=== PATIENT | male | born 1925 | race Caucasian/White ===

== ENCOUNTER 2017-02-04 14:51 | Emergency (ER) | payer MEDICARE, BC ==
[2017-02-04 15:06] VITALS: BP 134/56
--- NOTE | 2017-02-04 15:34 | EDM.PDOC ---
ED HPI GENERAL MEDICAL PROBLEM - General Chief Complaint: Lower Extremity Injury/Pain Stated Complaint: HURT LT KNEE Time Seen by Provider: 02/04/17 15:29 Source of Information: Reports: Patient, Family History Limitations: Reports: No Limitations - History of Present Illness INITIAL COMMENTS - FREE TEXT/NARRATIVE: pt tripped n a cememt area. She landed against the left rib cage and left knee. He is rating his pain about a 7. He is on coumadin so he has had alot of bleeding in the left knee. Onset: Other (pt fell last nite landed on his left knee. ) Duration: Hour(s): Location: Reports: Chest, Lower Extremity, Left Associated Symptoms: Reports: Chest Pain, Other (pt is not having alot of trouble breathing. ) left;knee Pain Score (Numeric/FACES): 5 - Related Data Allergies Allergy/AdvReac Type Severity Reaction Status Date / Time codeine AdvReac Nausea and Verified 02/04/17 15:08 Vomiting Home Meds: Home Meds Furosemide 10 mg PO DAILY 02/04/17 [History] Levothyroxine 125 mg PO DAILY 02/04/17 [History] Metoprolol Tartrate 75 mg PO DAILY 02/04/17 [History] Simvastatin [Zocor] 80 mg PO BEDTIME 02/04/17 [History] Warfarin Sodium [Coumadin] 7.5 mg PO ASDIRECTED 02/04/17 [History] Warfarin [Coumadin] 5 mg PO ASDIRECTED 02/04/17 [History] Past Medical History HEENT History: Reports: Impaired Vision Cardiovascular History: Reports: Heart Murmur Dermatologic History: Reports: Eczema - Past Surgical History GI Surgical History: Reports: Cholecystectomy Musculoskeletal Surgical History: Reports: Knee Replacement Social & Family History - Tobacco Use Smoking Status *Q: Never Smoker - Alcohol Use Days Per Week of Alcohol Use: 1 Number of Drinks Per Day: 7 Total Drinks Per Week: 7 - Recreational Drug Use Recreational Drug Use: No Review of Systems - Review of Systems Review Of Systems: See Below Constitutional: Reports: No Symptoms Eyes: Reports: No Symptoms Ears: Reports: No Symptoms Nose: Reports: No Symptoms Mouth/Throat: Reports: No Symptoms Respiratory: Reports: Other (pain in the left rib cage. ) Cardiovascular: Reports: No Symptoms GI/Abdominal: Reports: No Symptoms Musculoskeletal: Reports: Other (left knee is bruised and quite swollen. ) ED EXAM, GENERAL - Physical Exam Exam: See Below Free Text/Narrative:: pt fell last nite and hit his left rib cage. He is tender over the 8th and 9th rib. He has a markedly swollen left knee which is very bruised. He is on coumadin. He has been walking on the leg some since the fall Exam Limited By: No Limitations General Appearance: Alert, Mild Distress Ears: Normal TMs Nose: Normal Inspection Throat/Mouth: Normal Inspection Head: Atraumatic Neck: Normal Inspection Respiratory/Chest: No Respiratory Distress Cardiovascular: Regular Rate, Rhythm GI/Abdominal: Soft, Non-Tender (Male) Exam: Deferred Rectal (Males) Exam: Deferred Back Exam: Normal Inspection Extremities: Other (left knee area is very swollen. He has alot of hematoma around the knee he is tender on the lateral aspect of the knee. The lower leg is swollen. The calf is not tender, ) Neurological: Alert, Oriented, Normal Cognition Psychiatric: Normal Affect Course - Vital Signs Last Recorded V/S: Last Vital Signs Temp 37.4 C 02/04/17 15:05 Pulse 70 02/04/17 15:05 Resp 14 02/04/17 15:05 BP 134/56 L 02/04/17 15:05 Pulse Ox 95 02/04/17 15:05 - Orders/Labs/Meds Labs: Laboratory Tests 02/04/17 02/04/17 02/04/17 Range/Units 15:35 15:35 15:35 WBC 7.6 (4.5-11.0) K/uL RBC 3.05 L (4.30-5.90) M/uL Hgb 10.2 L (12.0-15.0) g/dL Hct 30.5 L (40.0-54.0) % MCV 100 H (80-98) fL MCH 33 H (27-31) pg MCHC 33 (32-36) % Plt Count 231 (150-400) K/uL Neut % (Auto) 60 (36-66) % Lymph % (Auto) 19 L (24-44) % Luna % (Auto) 18 H (2-6) % Eos % (Auto) 2 (2-4) % Baso % (Auto) 1 (0-1) % PT 29.4 H (9.5-12.0) sec INR 2.64 H (0.80-1.20) Sodium 138 L (140-148) mmol/L Potassium 4.6 (3.6-5.2) mmol/L Chloride 105 (100-108) mmol/L Carbon Dioxide 29 (21-32) mmol/L Anion Gap 8.6 (5.0-14.0) mmol/L BUN 22 H (7-18) mg/dL Creatinine 1.0 (0.8-1.3) mg/dL Est Cr Clr Drug Dosing 51.71 mL/min Estimated GFR (MDRD) > 60 (>60) Glucose 100 (74-106) mg/dL Calcium 8.4 L (8.5-10.1) mg/dL Meds: Medications Discontinued Medications Generic Name Dose Route Start Last Admin Trade Name Freq PRN Reason Stop Dose Admin Diphtheria/Tetanus/Acell Pertussis 0.5 ml 02/04/17 15:37 02/04/17 15:54 Adacel IM 02/04/17 15:38 0.5 ml .ONCE ONE Administration - Re-Assessments/Exams Free Text/Narrative Re-Assessment/Exam: 02/04/17 16:18 xray of the knee revealed no fracture present. rib detail and chest xray reveals a fracture of the 9th rib. His lab work looks good. His inr is 2.69. Will hold the coumadin tomorrow. Departure - Departure Time of Disposition: 16:05 Disposition: Home, Self-Care 01 Condition: Fair Clinical Impression: Fractured rib, Contusion of left knee, Abrasion of left knee, Abrasion of elbow , Traumatic hematoma of left knee - Discharge Information Instructions: Contusion, [id number], Abrasion, [id number], Rib Fracture, [id number], VIS, Tetanus, Diphtheria, and Pertussis (Tdap) - CDC Referrals: PCP,None [Primary Care Provider] - Forms: ED Department Discharge Care Plan Goals: norco 1/2 tab q6h prn for pain keflex 500mg tid, hold coumadin tomorrow then resume usual schedule. cool pack knee for next 48 hours then use moist warm heat to area. minimal wt bearing, elevate leg when sitting, encourage deep breathing. rtc if problems.
[2017-02-04] MEDS ORDERED: Diphtheria,Pertussis(Acell),Tetanus Vaccine 0.5 ML SDV IM ONE (15:37)
--- NOTE | 2017-02-05 09:07 | CR ---
Ribs 2V w Chest Lt HISTORY: Fall. COMPARISON: None FINDINGS: Chest demonstrates elevation right hemidiaphragm. The cardiac size and pulmonary vessels ar e normal. No focal infiltrates. Left ribs are limited due to bone demineralization. I do not see defi nite cortical he displaced fracture. Impression: Negative chest and left ribs.
--- NOTE | 2017-02-05 09:10 | CR ---
Knee 3V Lt HISTORY: Pain, fall. COMPARISON: None FINDINGS: Total left knee arthroplasty change. No significant effusion. No fracture or bony destructi ve process.
== END 2017-02-04 16:28 | disposition home or self-care (01) ==
LOC: JP.ED 14:51
DX: S22.32XA Fracture of one rib, left side, initial encounter for closed fracture (principal); S80.02XA Contusion of left knee, initial encounter; S50.319A Abrasion of unspecified elbow, initial encounter; Z23 Encounter for immunization; Z88.5 Allergy status to narcotic agent; Z79.01 Long term (current) use of anticoagulants; Z79.899 Other long term (current) drug therapy; Z90.49 Acquired absence of other specified parts of digestive tract; Z96.659 Presence of unspecified artificial knee joint; W01.0XXA Fall on same level from slipping, tripping and stumbling without subsequent striking against object, initial encounter
CPT/HCPCS: 36415; 71101-26-LT; 71101-LT; 73562-26-LT; 73562-LT; 80048; 85025; 85610; 90471; 90715; 99284; 99284-25

== ENCOUNTER 2017-02-09 15:26 | Emergency (ER) | payer MEDICARE, BC ==
[2017-02-09 16:39] VITALS: BP 134/81
[2017-02-09] MEDS ORDERED: Bacitracin Oint 1 GM U/D Packet TOP ONE (16:48)
--- NOTE | 2017-02-09 17:07 | EDM.PDOC ---
ED HPI GENERAL MEDICAL PROBLEM - General Chief Complaint: Lower Extremity Injury/Pain Stated Complaint: BLISTERS ON LEFT KNEE WITH REDNESS AND DISCHARGE Time Seen by Provider: 02/09/17 16:49 Source of Information: Reports: Patient, Family History Limitations: Reports: No Limitations - History of Present Illness INITIAL COMMENTS - FREE TEXT/NARRATIVE: pt returns to have his left knee checked. He has some blisters on the surface of the knee cap. These are filled with serosanguous material. i. He fell on the cement and the hematoma has absorbed well. Duration: Hour(s): Associated Symptoms: Reports: No Other Symptoms, Other (pt is having pain in the left side where he had rib fractures. ) Left Leg Pain Score (Numeric/FACES): 6 - Related Data Allergies Allergy/AdvReac Type Severity Reaction Status Date / Time codeine AdvReac Nausea and Verified 02/04/17 15:08 Vomiting Home Meds: Home Meds Furosemide 10 mg PO DAILY 02/04/17 [History] Levothyroxine 125 mg PO DAILY 02/04/17 [History] Metoprolol Tartrate 75 mg PO DAILY 02/04/17 [History] Simvastatin [Zocor] 80 mg PO BEDTIME 02/04/17 [History] Warfarin Sodium [Coumadin] 7.5 mg PO ASDIRECTED 02/04/17 [History] Warfarin [Coumadin] 5 mg PO ASDIRECTED 02/04/17 [History] Cephalexin [Keflex] 500 mg PO TID 02/09/17 [History] Hydrocodone/Acetaminophen [Hydrocodon-Acetaminophen 5-325] 0.5 tab PO Q6H PRN [History] Past Medical History HEENT History: Reports: Impaired Vision Cardiovascular History: Reports: Heart Murmur Dermatologic History: Reports: Eczema - Past Surgical History GI Surgical History: Reports: Cholecystectomy Musculoskeletal Surgical History: Reports: Knee Replacement Social & Family History - Tobacco Use Smoking Status *Q: Never Smoker - Caffeine Use Caffeine Use: Reports: Coffee - Alcohol Use Days Per Week of Alcohol Use: 1 Number of Drinks Per Day: 7 Total Drinks Per Week: 7 - Recreational Drug Use Recreational Drug Use: No Review of Systems - Review of Systems Review Of Systems: See Below Constitutional: Reports: No Symptoms Eyes: Reports: No Symptoms Ears: Reports: No Symptoms Nose: Reports: No Symptoms Mouth/Throat: Reports: No Symptoms Respiratory: Reports: No Symptoms, Other (pt has known fractured ribs and is having pain with deep breathing. ) Cardiovascular: Reports: No Symptoms GI/Abdominal: Reports: No Symptoms Genitourinary: Reports: No Symptoms Musculoskeletal: Reports: No Symptoms, Other (he notes some bliastering on the left knee cap. ) Skin: Reports: No Symptoms ED EXAM, GENERAL - Physical Exam Exam: See Below Free Text/Narrative:: pt notes some blistering on the left knee cap area and he is concernec about infection. Exam Limited By: No Limitations General Appearance: Alert, Anxious Ears: Normal TMs Nose: Normal Inspection Throat/Mouth: Normal Inspection Head: Atraumatic Neck: Normal Inspection Respiratory/Chest: Other ( pt continues to have pain with deep breathing in the left chest when he takes a deep breath. ) Cardiovascular: Regular Rate, Rhythm GI/Abdominal: Soft, Non-Tender (Male) Exam: Deferred Rectal (Males) Exam: Deferred Back Exam: Normal Inspection Extremities: Other ( left leg is less swollen than the last timme seen. He has some blistering over the left knee cap area. The fluid in the blisters looks clear. These were opened and the fluid was cultured. The knee does not feel real hot and there is no pus like drainage. The hematoma is resolving at this point. He should be continued for another week on keflex. ) Neurological: Alert, Oriented, Normal Cognition Psychiatric: Normal Affect Course - Vital Signs Last Recorded V/S: Last Vital Signs Temp 35.6 C 02/09/17 16:38 Pulse 59 L 02/09/17 16:38 Resp 16 02/09/17 16:38 BP 134/81 02/09/17 16:38 Pulse Ox 97 02/09/17 16:38 - Orders/Labs/Meds Meds: Medications Discontinued Medications Generic Name Dose Route Start Last Admin Trade Name Freq PRN Reason Stop Dose Admin Bacitracin 1 dose 02/09/17 16:48 02/09/17 16:56 Bacitracin Oint 1 Gm TOP 02/09/17 16:49 1 dose ONETIME ONE Administration - Re-Assessments/Exams Free Text/Narrative Re-Assessment/Exam: 02/14/17 07:33 The blisters were opened and the fluid was cultured. Departure - Departure Time of Disposition: 17:07 Disposition: Home, Self-Care 01 Condition: Fair Clinical Impression: Traumatic hematoma of knee - Discharge Information Instructions: Hematoma, [id number] Referrals: PCP,None [Primary Care Provider] - Forms: ED Department Discharge Care Plan Goals: cont warm packs. cont bacatracin, keep covered, extend the keflex 500mg qid for another week.
== END 2017-02-09 17:40 | disposition home or self-care (01) ==
LOC: JP.ED 15:26
DX: S80.02XA Contusion of left knee, initial encounter (principal); Z88.5 Allergy status to narcotic agent; Z79.01 Long term (current) use of anticoagulants; Z79.899 Other long term (current) drug therapy; Z90.49 Acquired absence of other specified parts of digestive tract; Z96.659 Presence of unspecified artificial knee joint; W01.198A Fall on same level from slipping, tripping and stumbling with subsequent striking against other object, initial encounter
CPT/HCPCS: 87070; 87077; 87186; 87205; 99283; 99284

== ENCOUNTER 2017-02-22 18:33 | Emergency (ER) | payer MEDICARE, BC ==
[2017-02-22] MEDS ORDERED: Metoprolol Tartrate 50 MG Tab PO ONE (19:10)
[2017-02-22] MEDS ORDERED: Warfarin 5 MG Tab PO ONE (19:10)
[2017-02-22] MEDS ORDERED: Simvastatin 20 MG Tab PO ONE (19:11)
--- NOTE | 2017-02-22 19:12 | EDM.PDOC ---
ED HPI GENERAL MEDICAL PROBLEM - General Chief Complaint: Medication Administration Stated Complaint: IN NEED OF MEDICATIONS Time Seen by Provider: 02/22/17 19:05 Source of Information: Reports: Patient History Limitations: Reports: No Limitations - History of Present Illness INITIAL COMMENTS - FREE TEXT/NARRATIVE: Chidi presents today with complaints of forgetting his medications at his primary residence. He is here on vacation. He reports his daughter is mailing his medications to him, however it can take up to three days. He denies complaints of pain, fever, chills, palpitations or other concerns today. - Related Data Allergies Allergy/AdvReac Type Severity Reaction Status Date / Time codeine AdvReac Nausea and Verified 02/04/17 15:08 Vomiting Home Meds: Home Meds Levothyroxine 0.125 mg PO DAILY 02/04/17 [History] Metoprolol Tartrate 75 mg PO BID 02/04/17 [History] Simvastatin [Zocor] 40 mg PO BEDTIME 02/04/17 [History] Warfarin Sodium [Coumadin] 7.5 mg PO ASDIRECTED 02/04/17 [History] Warfarin [Coumadin] 5 mg PO ASDIRECTED 02/04/17 [History] Cephalexin [Keflex] 500 mg PO TID 02/09/17 [History] Hydrocodone/Acetaminophen [Hydrocodon-Acetaminophen 5-325] 0.5 tab PO Q6H PRN [History] Past Medical History HEENT History: Reports: Impaired Vision Cardiovascular History: Reports: Heart Murmur, Hypertension Dermatologic History: Reports: Eczema - Infectious Disease History Infectious Disease History: Reports: Chicken Pox, Measles, Mumps - Past Surgical History GI Surgical History: Reports: Cholecystectomy Musculoskeletal Surgical History: Reports: Knee Replacement Social & Family History - Tobacco Use Smoking Status *Q: Never Smoker - Caffeine Use Caffeine Use: Reports: Coffee - Alcohol Use Days Per Week of Alcohol Use: 1 Number of Drinks Per Day: 7 Total Drinks Per Week: 7 - Recreational Drug Use Recreational Drug Use: No ED ROS GENERAL - Review of Systems Review Of Systems: See Below Constitutional: Reports: Other (Patient forgot daily chronic medications at his primary residence many miles away. ) HEENT: Reports: No Symptoms Respiratory: Reports: No Symptoms Cardiovascular: Reports: No Symptoms GI/Abdominal: Reports: No Symptoms : Reports: No Symptoms Musculoskeletal: Reports: No Symptoms Skin: Reports: No Symptoms Neurological: Reports: No Symptoms Psychiatric: Reports: No Symptoms Hematologic/Lymphatic: Reports: No Symptoms Immunologic: Reports: No Symptoms ED EXAM, GENERAL - Physical Exam Exam: See Below Free Text/Narrative:: Chidi is an alert, oriented and pleasant 89 year old male who forgot his medications at his primary home. Exam Limited By: No Limitations General Appearance: Alert, WD/WN, No Apparent Distress Respiratory/Chest: No Respiratory Distress, Lungs Clear, Normal Breath Sounds, No Accessory Muscle Use, Chest Non-Tender Cardiovascular: Normal Peripheral Pulses, Regular Rate, Rhythm, No Edema, No Murmur Neurological: Alert, Oriented, CN II-XII Intact, Normal Cognition, Normal Gait, No Motor/Sensory Deficits Psychiatric: Normal Affect, Normal Mood Skin Exam: Warm, Dry, Intact, Normal Color, No Rash Lymphatic: No Adenopathy Course - Vital Signs Last Recorded V/S: Last Vital Signs Temp 36.3 C 02/22/17 18:49 Pulse 82 02/22/17 19:19 Resp 16 02/22/17 18:49 BP 136/96 H 02/22/17 19:19 Pulse Ox 96 02/22/17 18:49 - Orders/Labs/Meds Meds: Medications Discontinued Medications Generic Name Dose Route Start Last Admin Trade Name Davidq PRN Reason Stop Dose Admin Metoprolol Tartrate 75 mg 02/22/17 19:10 02/22/17 19:19 Lopressor PO 02/22/17 19:11 75 mg ONETIME ONE Administration Simvastatin 40 mg 02/22/17 19:11 02/22/17 19:20 Zocor PO 02/22/17 19:12 40 mg ONETIME ONE Administration Warfarin Sodium 5 mg 02/22/17 19:10 02/22/17 19:20 Coumadin PO 02/22/17 19:11 5 mg ONETIME ONE Administration - Re-Assessments/Exams Free Text/Narrative Re-Assessment/Exam: 02/22/17 19:25 Patient provided night time medications and warfarin in ER. Departure - Departure Time of Disposition: 19:35 Disposition: Home, Self-Care 01 Condition: Good Clinical Impression: Medication refill - Discharge Information Referrals: PCP,None [Primary Care Provider] - Forms: ED Department Discharge Additional Instructions: You were provided: Metoprolol tartrate 75 mg, warfarin 5 mg and simvastatin 40mg by mouth in the ER tonight. Fill the hard copy prescriptions at your pharmacy of choice tomorrow. There is a refill on the prescriptions if your medications do not come in the mail soon enough. Return for any issues or concerns. Enjoy the beautiful Fall weather!!! - Assessment/Plan Assessment:: Medication refill Patient forgot his chronic medications at his home, 6 hours away. His daughter is mailing them to him. He will be provided refills until his medications arrive. Plan: Patient provided: Metoprolol tartrate 75 mg, warfarin 5 mg and simvastatin 40mg by mouth in the ER tonight. Fill the hard copy prescriptions at pharmacy of choice tomorrow. There is a refill on the prescriptions if medications do not come in the mail soon enough. Return for any issues or concerns.
[2017-02-22 19:20] VITALS: BP 136/96
== END 2017-02-22 19:36 | disposition home or self-care (01) ==
LOC: JP.ED 18:33
DX: Z76.0 Encounter for issue of repeat prescription (principal); I10 Essential (primary) hypertension; Z90.49 Acquired absence of other specified parts of digestive tract; Z96.659 Presence of unspecified artificial knee joint; Z79.01 Long term (current) use of anticoagulants; Z79.899 Other long term (current) drug therapy; Z88.5 Allergy status to narcotic agent
CPT/HCPCS: 99282; A9270